=== PATIENT | female | born 1985 | race Caucasian/White ===

== ENCOUNTER 2018-05-02 17:44 | Emergency (ER) | payer BC ==
[2018-05-02] MEDS ORDERED: Betamethasone Soluspan 30 mg/5mL Inj Susp IM ONE (18:22)
--- NOTE | 2018-05-02 20:59 | OBHP ---
Datetime: 05/02/2018 18:22 IP Adm Impression: , intrauterine IP Admit Plan: Observation/Evaluation Admit Comment, IP Provider: 33-year-old at 32.2 weeks (dated on LMP) with a twin (di- di as per patient) presents with RX from primary OBGYN (Dr Vasquez) for betamethasone injection (#1 of 2) and NST. Endorses good movement. Denies vaginal bleeding, gush of fluid from vagina, malodo tracy discharge, new onset edema, headache, and change in vision. No problems with the thus far, patient of Dr Vasquez last seen today (05/02). OBGYN: Dr Vasquez OB Hx: , no complications thus far PMH: denies Social: denies Meds: denies Allergies: denies Family Hx: Denies Labs: wnl as per patient, no records ROS: all other systems reviewed and negative unless otherwise noted in HPI PE: VS: WNL Gen: resting comfortably in bed Resp: no respiratory distress Ext: no edema CV: RRR Abd: no abdominal tenderness to palpation A+P: 33-year-old at 32.2 weeks with a twin (di-di as per patient) presents with RX from primary OBGYN for betamethasone injection (#1 of 2) and NST. -NST reactive, Cat I -Betamethasone 12mg IM given -Recommend returning to [facility] for betamethasone injection #2 tomorrow, 05/03 -Follow-up with primary OBGYN as per routinely scheduled appointments -ED precautions given Case seen and discussed with Dr King -Obdulia Farah PGY1 Addendum by Dr. King: I have evaluated the patient independently and I agree with the above Pelvic Type - PN: Not Done Extremities - PN: Normal Abdomen - PN: Normal Back - PN: Normal Breast - PN: Not Done Lungs - PN: Normal Heart - PN: Not Done Thyroid - PN: Not Done Neurologic - PN: Normal HEENT - PN: Normal General - PN: Normal EGA AdmitDate IP: 33.1 IP Chief Complaint: evaluation Genitourinary Exam: Not Done DTRs - PN: Not Done
--- NOTE | 2018-05-02 21:02 | OBDCSUM ---
Datetime: 05/02/2018 19:25 Discharged to, Provider: Home Follow up at, Provider: Delores Erica Disch Instr Activity: Normal activity Disch Instr Diet: Regular Discharge Time: 05/02/2018 19:25 Follow up in weeks, Provider: Tomorrow, 05/03/18 for betamethasone injection #2. Disch Referrals: None Discharge Diagnosis Prov Other: encouter for preventive procedure
== END 2018-05-02 19:25 | disposition home or self-care (01) ==
LOC: H.EROB2 17:44 → H.L&D 18:16 → H.EROB2 19:25
DX: O30.003 Twin pregnancy, unspecified number of placenta and unspecified number of amniotic sacs, third trimester (principal); Z3A.32 32 weeks gestation of pregnancy
CPT/HCPCS: 96372; 99283; J0702

== ENCOUNTER 2018-05-03 17:30 | Emergency (ER) | payer BC ==
[2018-05-03 17:44] VITALS: BMI 23.0
[2018-05-03] MEDS ORDERED: Betamethasone Soluspan 30 mg/5mL Inj Susp IM ONE (18:07)
--- NOTE | 2018-05-03 18:29 | OBHP ---
Datetime: 05/03/2018 18:13 IP Adm Impression: , intrauterine IP Admit Plan: Observation/Evaluation Admit Comment, IP Provider: 33-year-old at 33+3 weeks (dated on LMP) with a twin (di- di as per patient) presents with RX from primary OBGYN (Dr Vasquez) for betamethasone injection (#2) a nd NST. Endorses good movement. Denies vaginal bleeding, gush of fluid from vagina, malodorous discharge, new onset edema, headache, and change in vision. No problems with the thus far, patient of Dr Vasquez last seen 05/02. OBGYN: Dr Vasquez OB Hx: , no complications thus far PMH: denies Social: denies Meds: denies Allergies: denies Family Hx: Denies Labs: wnl as per patient, no records ROS: all other systems reviewed and negative unless otherwise noted in HPI PE: VS: WNL Gen: resting comfortably in bed Resp: no respiratory distress Ext: no edema CV: RRR Abd: no abdominal tenderness to palpation A+P: 33-year-old at 33+3 weeks with a twin (di-di as per patient) presents with RX from primary OBGYN for betamethasone injection (#2) and NST. -NST reactive, Cat I -Betamethasone 12mg IM given #2 -Follow-up with primary OBGYN as per routinely scheduled appointments -ED precautions given Case seen and discussed with Dr Josemanuel Gunter PGY1 Patient was seen with the resident I agree with the note Pelvic Type - PN: Adequate Extremities - PN: Normal Abdomen - PN: Normal Back - PN: Normal Breast - PN: Not Done Lungs - PN: Normal Heart - PN: Normal Thyroid - PN: Normal Neurologic - PN: Normal HEENT - PN: Normal General - PN: Normal EGA AdmitDate IP: 33.2 Vital Signs Provider: Reviewed; Within Normal Limits IP Chief Complaint: evaluation Genitourinary Exam: Normal DTRs - PN: Normal
[2018-05-03] MEDS ORDERED: Lactated Ringer's 1,000 ML IV SCH (19:15)
[2018-05-04 01:37] VITALS: BP 115/81; PULSE 105; RESP 18; TEMP 97.7
== END 2018-05-03 20:50 | disposition home or self-care (01) ==
LOC: H.EROB2 17:30
DX: O30.003 Twin pregnancy, unspecified number of placenta and unspecified number of amniotic sacs, third trimester (principal); Z3A.33 33 weeks gestation of pregnancy
CPT/HCPCS: 96360; 96372; 99281; J0702; J7120

== ENCOUNTER 2018-05-27 12:38 | Inpatient (IN) | payer BC ==
[2018-05-27] MEDS ORDERED: Lactated Ringer's 1,000 ML IV ONE ×2 (12:59→13:02)
[2018-05-27 13:01] VITALS: BMI 24.5
[2018-05-27] MEDS ORDERED: Oxytocin 30 UNIT in NS 500 ml 30 UNITS/500 ML BAG IV ONE (13:03)
[2018-05-27] MEDS ORDERED: OXYTOCIN/0.9 % NS 20 UNIT/1,000 ML BAG IV SCH (13:15)
[2018-05-27 13:31] LABS: BASO % 0.3 % (0.0-2.0); EOS % 0.1 % (0.0-4.0); HEMOGLOBIN 12.7 g/dL (12.0-16.0); LYMPH # 1.9 K/uL (1.0-4.3); LYMPH % 29.8 % (20.0-40.0); MEAN CELL VOLUME 84.9 fl (81.0-99.0); MEAN CORPUSCULAR HEMOGLOBIN 28.2 pg (27.0-31.0); MEAN CORPUSCULAR HGB CONC 33.2 g/dL (33.0-37.0); MEAN PLATELET VOLUME 11.4 fl (7.2-11.7); MONO # 0.4 K/uL (0.0-0.8); MONO % 5.8 % (0.0-10.0); NEUT # 4.1 K/uL (1.8-7.0); NRBC % 0.2 % (0.0-0.0); RBC 4.52 Mil/uL (3.80-5.20); RED CELL DISTRIBUTION WIDTH 15.5 % (11.5-14.5); WHITE BLOOD COUNT 6.4 K/uL (4.8-10.8)
[2018-05-27] MEDS ORDERED: ceFAZolin 1 GM in Sodium Chloride 0.9% 100 ML IVPB ONE (13:47)
[2018-05-27] MEDS ORDERED: Morphine 5 mg/10 ml preservative-free Inj(Duramorph) ONE (15:33)
[2018-05-27] MEDS ORDERED: Oxycodone/Acetaminophen 5/325 mg Tab PO PRN ×2 (16:08)
--- NOTE | 2018-05-27 16:11 | OBHP ---
Datetime: 05/27/2018 12:56 IP Adm Impression: Term, intrauterine IP Admit Plan: Admit to unit; Initiate Section protocol Admit Comment, IP Provider: PNP: Dr Vasquez @ 36.6 with twin gestation, HOMER of 06/18/2018, LMP: 09/11/2018 c/o ctx every 5-10 minutes. Ctx marte ve been occurring since 26 wks but have increased in intensity _ frequency within past 2-3 days. +FM. She denies vb, loss of fluid. Denies f/c/n/v/cp or sob. OBGYNhx: received betamethasone injection @ 33.3 wks PMH: alpha thalassemia minor Meds: procardia 10mg QD Allergies: NKA Surghx: fissure removal Sochx: denies etOH, cigarette or elicit drug use ROS: all 12 points reviewed and are neg unless otherwise mentioned in HPI PE: Cardio: s1 s2 RRR Lungs: cta b/l no wheeze Abd: Gravid, nontender, no rigidity, no guarding [place]: NST reactive _ reassuring Ext: calves nontender, nonedematous A/P: with twin gestations, clinically stable, @ 36.6 w/HOMER of 06/18/2018 c/o ctx every 5-10 min utes. -Admit to unit -Initiate protocol -Continue FHR monitoring Case discussed with attending -Nellie Flores, PGY-1 Attending Note: Patient was seen and evaluated with resident and I agree with the above. [place] Extremities - PN: Normal Abdomen - PN: Normal Lungs - PN: Normal Heart - PN: Normal General - PN: Normal Presentation- Admit Other: transverse Presentation-Admit: Breech FHR - Baseline A Provider: 130's Gestation - Est Wks by US: 36.6 IP Hx Assessment: The History has been Reviewed and is Current EGA AdmitDate IP: 36.6 Vital Signs Provider: Reviewed; Within Normal Limits IP Chief Complaint: Uterine contractions NICHD Variability Prov Fetus A: Moderate 6-25bpm NICHD Accel Fetus A IP Provider: [id number] FHR Category Provider Fetus A: Category I NICHD Decel Fetus A IP Provider: None
[2018-05-27] MEDS ORDERED: Labetalol 5mg/ml (4ml) IVP STA (17:01)
[2018-05-27] MEDS ORDERED: Lactated Ringer's 1,000 ML IV SCH (20:15)
[2018-05-27] MEDS ORDERED: Simethicone 80 mg Chewtab PO SCH (22:00)
[2018-05-27] MEDS: Simethicone 80 mg Chewtab PO SCH (22:03)
[2018-05-28] MEDS: Oxycodone/Acetaminophen 5/325 mg Tab PO PRN ×4 (04:27→21:38)
[2018-05-28] MEDS: Simethicone 80 mg Chewtab PO SCH ×4 (04:29→21:36)
[2018-05-28 06:56] LABS: HEMOGLOBIN 9.3 g/dL (12.0-16.0); MEAN CELL VOLUME 85.7 fl (81.0-99.0); MEAN CORPUSCULAR HEMOGLOBIN 28.6 pg (27.0-31.0); MEAN CORPUSCULAR HGB CONC 33.4 g/dL (33.0-37.0); RBC 3.25 Mil/uL (3.80-5.20); RED CELL DISTRIBUTION WIDTH 15.4 % (11.5-14.5); WHITE BLOOD COUNT 9.7 K/uL (4.8-10.8)
[2018-05-28] MEDS ORDERED: Multivitamin With Minerals Tab PO SCH (09:00)
[2018-05-28] MEDS: Multivitamin With Minerals Tab PO SCH (09:12)
[2018-05-28] MEDS ORDERED: Influenza Vaccine 60 MCG/0.5 ML SYR (3 yr & up) IM ONE (15:33)
[2018-05-28] MEDS ORDERED: Influenza Vaccine 60 mcg/0.5 mL SYR (4YR UP) IM ONE (15:45)
[2018-05-29] MEDS: Simethicone 80 mg Chewtab PO SCH ×4 (04:31→22:00)
[2018-05-29] MEDS: Oxycodone/Acetaminophen 5/325 mg Tab PO PRN ×4 (04:33→22:50)
[2018-05-29] MEDS: Multivitamin With Minerals Tab PO SCH (08:40)
[2018-05-29] MEDS ORDERED: Influenza Vaccine 60 mcg/0.5 mL SYR (4YR UP) IM ONE (09:00)
--- NOTE | 2018-05-29 09:39 | OBADHP ---
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 Ctx marte ve been occurring since 26 wks but have increased in intensity _ frequency within past 2-3 days. +FM. She denies vb, loss of fluid. Denies f/c/n/v/cp or sob. OBGYNhx: received betamethasone injection @ 33.3 wks PMH: alpha thalassemia minor Meds: procardia 10mg QD Allergies: NKA Surghx: fissure removal Sochx: denies etOH, cigarette or elicit drug use ROS: all 12 points reviewed and are neg unless otherwise mentioned in HPI PE: Cardio: s1 s2 RRR Lungs: cta b/l no wheeze Abd: Gravid, nontender, no rigidity, no guarding [place]: NST reactive _ reassuring Ext: calves nontender, nonedematous A/P: with twin gestations, clinically stable, @ 36.6 w/HOMER of 06/18/2018 c/o ctx every 5-10 min utes. -Admit to unit -Initiate protocol -Continue FHR monitoring Case discussed with attending -Nellie Flores, PGY-1 Attending Note: Patient was seen and evaluated with resident and I agree with the above. [place] Extremities - PN: Normal Abdomen - PN: Normal Lungs - PN: Normal Heart - PN: Normal General - PN: Normal Presentation- Admit Other: transverse Presentation-Admit: Breech FHR - Baseline A Provider: 130's Gestation - Est Wks by US: 36.6 IP Hx Assessment: The History has been Reviewed and is Current Vital Signs Provider: Reviewed; Within Normal Limits IP Chief Complaint: Uterine contractions NICHD Variability Prov Fetus A: Moderate 6-25bpm NICHD Accel Fetus A IP Provider: [id number] FHR Category Provider Fetus A: Category I NICHD Decel Fetus A IP Provider: None EGA AdmitDate IP: 36.6 IP Adm Impression: Term, intrauterine IP Admit Plan: Admit to unit; Initiate Section protocol Datetime: 05/03/2018 18:13 Pelvic Type - PN: Adequate Back - PN: Normal Breast - PN: Not Done Thyroid - PN: Normal Neurologic - PN: Normal HEENT - PN: Normal Genitourinary Exam: Normal DTRs - PN: Normal
--- NOTE | 2018-05-29 20:51 | OBPPN ---
Datetime: 05/29/2018 08:28 PP Pain Prov: Within normal limits PP Nausea Prov: Denies PP Flatus Prov: Yes PP BM Prov: No PP Heart Prov: Normal PP Lungs Prov: Normal PP Abdomen/Uterus Prov: Normal PP Lochia Prov: Normal PP Extremities Prov: Normal PP Progress Prov: Normal PP Impression Prov: Normal progression PP Plan Prov: Continue present management PP Progress Note Prov: , PPD 2 s/p with delivery of twin girls. Patient has no complai nts. Pain is well tolerated with pain med regimen. Lochia like menses. Patient is breast _ bottle fee ding. +Flatus, -BM. Denies f/c/n/v/cp or sob. VS: wnl Cardio: s1s2 RRR Lungs: cta b/l no wheeze Abd: soft, incision-c/d/i, appropriate tenderness, no rigidity, no guarding Ext: calves nonedematous A/P: , clinically stable, PPD 2 s/p with delivery of twin girls. - encouraged. -Ambulation as tolerated encouraged. -C/w pain med regimen as tolerated. -Anticipated discharge 05/30/2018 Case discussed with attending -Nellie Flores, PGY-1 OB Hospitalist Addendum: Pt seen and examined by me. Agree w/ above. POD 2 s/p section for twins, doing well, breast feeding. Continue current care. (ES) IP PP Procedures: None Vital Signs Provider PP: Reviewed; Within Normal Limits
[2018-05-30 06:45] LABS: BASO % 0.3 % (0.0-2.0); EOS # 0.1 K/uL (0.0-0.7); EOS % 0.8 % (0.0-4.0); HEMOGLOBIN 10.5 g/dL (12.0-16.0); LYMPH # 2.3 K/uL (1.0-4.3); LYMPH % 21.3 % (20.0-40.0); MEAN CELL VOLUME 85.1 fl (81.0-99.0); MEAN CORPUSCULAR HEMOGLOBIN 28.5 pg (27.0-31.0); MEAN CORPUSCULAR HGB CONC 33.5 g/dL (33.0-37.0); MEAN PLATELET VOLUME 9.3 fl (7.2-11.7); MONO # 0.6 K/uL (0.0-0.8); MONO % 5.2 % (0.0-10.0); NEUT # 7.7 K/uL (1.8-7.0); NEUT % 72.4 % (50.0-75.0); NRBC % 0.3 % (0.0-0.0); RBC 3.69 Mil/uL (3.80-5.20); RED CELL DISTRIBUTION WIDTH 16.1 % (11.5-14.5); WHITE BLOOD COUNT 10.7 K/uL (4.8-10.8)
[2018-05-30] MEDS: Oxycodone/Acetaminophen 5/325 mg Tab PO PRN (07:41)
[2018-05-30] MEDS: Simethicone 80 mg Chewtab PO SCH (09:12)
[2018-05-30] MEDS: Multivitamin With Minerals Tab PO SCH (09:12)
[2018-05-30] MEDS ORDERED: Tdap Vaccine 0.5 ml Vial (10-64 yrs) IM ONE (12:00)
[2018-05-30 19:11] VITALS: BP 140/82; PULSE 84; RESP 20; TEMP 98.7; O2SAT 99
--- NOTE | 2018-06-09 12:09 | CP.PCM.PN ---
Subjective - Date & Time of Evaluation Date of Evaluation: 05/27/18 Time of Evaluation: 17:00 - Subjective Subjective: patient given .1mg wasted 4.9 mg morphine Objective - Vital Signs/Intake and Output Vital Signs (last 24 hours): Temp Pulse Resp BP Pulse Ox 98.7 F 84 20 140/82 99 05/30/18 19:11 05/30/18 19:11 05/30/18 19:11 05/30/18 19:11 05/30/18 19:11 - Labs Labs: 05/30/18 05:20
--- NOTE | 2018-06-18 10:03 | OBDCSUM ---
Datetime: 05/30/2018 06:05 Discharge Diagnosis Prov Other: S/P Delivery, Clinically Stable
--- NOTE | 2018-06-20 19:50 | OP ---
PROCEDURE DATE: 05/27/2018 PREOPERATIVE DIAGNOSES: A 36 weeks and 5 days with twins and pelvic pain. POSTOPERATIVE DIAGNOSES: A 36 weeks and 5 days with twins and pelvic pain.. PROCEDURE PERFORMED: Primary section. SURGEON: Darren Vasquez MD [facility] DISPATCHER: Dr. Philip TYPE OF ANESTHESIA: Spinal. ESTIMATED BLOOD LOSS: 800 mL. COMPLICATIONS: None. DESCRIPTION OF PROCEDURE: After informed consent was obtained, the patient was brought to the operating room, placed on the table where spinal anesthesia was given. When anesthesia was found to be sufficient, she was prepped and draped in normal sterile fashion. At the site of the previous skin incision, an incision was made with a knife, the subcutaneous cut with a Bovie. The fascia was excised on both the sides using curved Arredondo scissors. The fascia was from the site of the umbilicus and then at the site of the belly button rectus muscle . The peritoneum was incised, and we went into the abdominal cavity. A bladder blade was placed, and bladder flap was created. After the lower uterine segment incision was made with a knife, it was extended on both sides using curved Arredondo scissors. Twin A baby delivered in a vertex fashion. Cord was clamped and cut. Baby was handed to the awaiting bank teller machine mechanic. After that, the twin B was delivered in a sherrill Breech position. Cord was clamped and cut and baby was handed to the awaiting bank teller machine mechanic. After that,placenta was delivered manually and sent to the Pathology. Uterus was exteriorized and cleared of all clots and debris. Uterine incision was closed using a #1 Vicryl in running interlocking fashion. Later uterus was seen, it was a little bit boggy, so extra Pitocin was given and Methergine was given. After that, the incision was looked back and it was hemostatic. and uterus was returned back to the abdominal cavity. After that, the gutters were cleared of all the clots and debris. The peritoneum was closed with 2-0 Vicryl in interlocking fashion. Muscles were closed with 2-0 Vicryl in an interlocking fashion. The fascia was closed with #1 Vicryl in a running interlocking fashion. The skin was closed using 3-0 Monocryl straight needle. The patient tolerated the procedure well. Lap, sponge, and instrument counts were correct x2. Darren Vasquez MD [facility] # [id number]
--- NOTE | 2018-06-21 11:02 | OBPPN ---
Datetime: 05/30/2018 06:02 PP Pain Prov: Within normal limits PP Nausea Prov: Denies PP Flatus Prov: Yes PP BM Prov: No PP Heart Prov: Normal PP Lungs Prov: Normal PP Abdomen/Uterus Prov: Normal PP Lochia Prov: Normal PP Extremities Prov: Normal PP C/S Incision Prov: Normal PP Progress Prov: Normal PP Comments Phys Exam Prov: Gen: NAD HEENT: NCAT Cardio: + S1S2, RRR Lungs: CTA B/L, no wheezes, rales or rhonchi Abd: soft, incision-c/d/i, appropriate tenderness to palpation, + BS heard throughout, UB firm bel ow level of umbilicus Ext: No edema, calves non tender PP Impression Prov: Normal progression PP Plan Prov: Discharge PP Progress Note Prov: , POD 3 s/p with delivery of twin girls @36.6 wks. Patient h as no complaints. Pain is well tolerated with pain med regimen. Tolerating oral intake. Lochia like m enses. Patient is breast and bottle feeding without difficulty. +Flatus, -BM. Denies fevers, chills, dizziness, chest pain, SOB, nausea, vomiting, diarrhea or dysuria. VS: wnl Gen: NAD HEENT: NCAT Cardio: + S1S2, RRR Lungs: CTA B/L, no wheezes, rales or rhonchi Abd: soft, incision-c/d/i, appropriate tenderness to palpation, + BS heard throughout, UB firm bel ow level of umbilicus Ext: No edema, calves non tender H _ H: aCBC: 12.7/38.3, pCBC: 9.3/27.9 Assessment: , POD 3 s/p with delivery of twin girls @36.6 wks Plan: -Discharge today - encouraged. -Ambulation encouraged. -Script for Percocet 5/325mg 1 tab po Q 6 PRN severe pain -Ibuprofen 600mg 1-2 tabs po Q 4-6hrs PRN mild pain -If fevers without relief, pain not controlled with medications, vaginal bleeding come back to ED -Avoid stairs, heavy lifting -F/U with Dr. Vasquez in 1 week for would check and 4-6 weeks for post- visit, visit with general merchandise manager [facility] in 2-3 days. Case reviewed and discussed with attending -Vianney Doshi PGY1 Attending Note: Patient was discussed with the resident and I agreed with the above. IP PP Procedures: None Vital Signs Provider PP: Reviewed; Within Normal Limits
== END 2018-05-30 14:35 | disposition home or self-care (01) | DRG 788 ==
LOC: H.EROB2 12:38 → H.L&D 13:00 → H.OB/GYN 19:52
PROVIDERS: ADMIT Obstetrics & Gynecology; ATTEND Obstetrics & Gynecology
PROC: 10D00Z1 Extraction of Products of Conception, Low, Open Approach (ICD-10-PCS; principal; 2018-05-27)
PROC: 4A1HXCZ Monitoring of Products of Conception, Cardiac Rate, External Approach (ICD-10-PCS; 2018-05-27)
PROC: 3E02340 Introduction of Influenza Vaccine into Muscle, Percutaneous Approach (ICD-10-PCS; 2018-05-29)
PROC: 3E0234Z Introduction of Serum, Toxoid and Vaccine into Muscle, Percutaneous Approach (ICD-10-PCS; 2018-05-30)
DX: O60.14X0 Preterm labor third trimester with preterm delivery third trimester, not applicable or unspecified (principal); O30.003 Twin pregnancy, unspecified number of placenta and unspecified number of amniotic sacs, third trimester; O32.1XX1 Maternal care for breech presentation, fetus 1; Z37.2 Twins, both liveborn; Z3A.36 36 weeks gestation of pregnancy; O99.02 Anemia complicating childbirth; D56.3 Thalassemia minor; Z23 Encounter for immunization